=== PATIENT | female | born 1965 | race Caucasian/White ===

== ENCOUNTER 2023-02-06 08:44 | Day surgery (SDC) | payer BC ==
[2023-01-23 16:36] VITALS: BMI 29.3
[2023-02-06] MEDS ORDERED: PROPOFOL 60 ML ONE (09:20)
[2023-02-06] MEDS ORDERED: MIDAZOLAM HCL 2 MG/2 ML SINGLE DOSE VIAL ONE ×2 (09:20→11:25)
[2023-02-06] MEDS ORDERED: DEXAMETHASONE SOD PHOSPHATE/PF 10 MG/ML SDV ONE (10:03)
[2023-02-06] MEDS ORDERED: BUPIVACAINE HCL/PF 0.5% (5 MG/ML) 30 ML VIAL IJ ONE (10:03)
[2023-02-06] MEDS ORDERED: FENTANYL CITRATE/PF 50 MCG/ML VIAL ONE (10:08)
[2023-02-06] MEDS ORDERED: BUPIVACAINE HCL/PF 2.5 MG/ML - 30 ML VIAL IJ ONE (10:11)
[2023-02-06] MEDS ORDERED: BUPIVACAINE HCL/EPINEPHRINE/PF 30 ML VIAL IJ ONE (10:11)
[2023-02-06] MEDS ORDERED: LIDOCAINE HCL/PF 2% SDV 5ML VIAL ONE (10:47)
[2023-02-06] MEDS ORDERED: ONDANSETRON 4 MG/2 ML VIAL ONE (11:20)
[2023-02-06] MEDS ORDERED: ceFAZolin SODIUM 1 GM VIAL ONE (11:20)
[2023-02-06] MEDS ORDERED: TRANEXAMIC ACID 1000 MG/10 ML VIAL ONE (11:20)
[2023-02-06] MEDS ORDERED: ONDANSETRON 4 MG/2 ML VIAL IVPUSH PRN (11:57)
[2023-02-06] MEDS ORDERED: ACETAMINOPHEN 1000 MG/100 ML BAG IVPB PRN (11:58)
[2023-02-06] MEDS ORDERED: LACTATED RINGERS SOLUTION 1,000 ML IV SCH (12:00)
[2023-02-06 14:12] VITALS: BP 141/78; PULSE 79; RESP 16; TEMP 97.8
== END 2023-02-06 13:55 | disposition home or self-care (01) ==
LOC: FASU 08:44
PROVIDERS: ATTEND Orthopaedic Surgery
PROC: 0RSKXZZ Reposition Left Shoulder Joint, External Approach (ICD-10-PCS; principal; 2023-02-06 11:10)
PROC: 0RBK4ZZ Excision of Left Shoulder Joint, Percutaneous Endoscopic Approach (ICD-10-PCS; 2023-02-06 11:10)
DX: M75.02 Adhesive capsulitis of left shoulder (principal); M75.112 Incomplete rotator cuff tear or rupture of left shoulder, not specified as traumatic; M75.52 Bursitis of left shoulder
CPT/HCPCS: 94760